=== PATIENT | female | born 1995 | race Caucasian/White ===

== ENCOUNTER 2022-05-04 08:55 | Emergency (ER) | payer BC ==
[~2022-05-04] VITALS: Ht 170.2 cm; Wt 65.9 kg
[2022-05-04 09:05] VITALS: TEMP 98.1
[2022-05-04 11:09] VITALS: BP 115/75; PULSE 92
== END 2022-05-04 11:09 | disposition home or self-care (01) ==
LOC: COL.ER 08:55
DX: U07.1 COVID-19 (principal); J00 Acute nasopharyngitis [common cold]